=== PATIENT | female | born 1950 | race Two or more races ===

== ENCOUNTER 2024-07-18 05:44 | Day surgery (SDC) | payer OTHER ==
[2024-07-18] MEDS ORDERED: GLUCAGON 1 MG VIAL ONE (08:46)
[2024-07-18] MEDS ORDERED: NALOXONE HCL 0.4 MG/ML AMPUL IV STA (09:21)
[2024-07-18] MEDS ORDERED: FLUMAZENIL 0.5 MG/5 ML ML IV STA (09:21)
[2024-07-18] MEDS ORDERED: GLUCAGON 1 MG VIAL IV STA (09:21)
[2024-07-18] MEDS ORDERED: ONDANSETRON HCL 2 MG/ML VIAL IV ONE (09:30)
[2024-07-18] MEDS ORDERED: fentaNYL CITRATE 50 MCG/ML AMPUL IV PUSH ONE (09:30)
[2024-07-18] MEDS ORDERED: MIDAZOLAM HCL 2 MG/2 ML VIAL IV ONE (09:30)
[2024-07-18] MEDS ORDERED: DIPHENHYDRAMINE HCL 50 MG/ML VIAL 1ML IV ONE (09:30)
== END 2024-07-18 11:50 | disposition home or self-care (01) ==
LOC: AMB-ENDOS 05:44
PROVIDERS: ATTEND Colon & Rectal Surgery
DX: K63.5 Polyp of colon (principal); R19.4 Change in bowel habit

== ENCOUNTER 2024-09-17 05:26 | Day surgery (SDC) | payer OTHER ==
[2024-09-17] MEDS ORDERED: FLUMAZENIL 0.5 MG/5 ML ML IV STA (09:04)
[2024-09-17] MEDS ORDERED: NALOXONE HCL 0.4 MG/ML AMPUL IV STA (09:04)
[2024-09-17] MEDS ORDERED: DIPHENHYDRAMINE HCL 50 MG/ML VIAL 1ML IV ONE (09:15)
[2024-09-17] MEDS ORDERED: fentaNYL CITRATE 50 MCG/ML AMPUL IV PUSH ONE (09:15)
[2024-09-17] MEDS ORDERED: ONDANSETRON HCL 2 MG/ML VIAL IV ONE (09:15)
[2024-09-17] MEDS ORDERED: MIDAZOLAM HCL 2 MG/2 ML VIAL IV ONE (09:15)
== END 2024-09-17 10:20 | disposition home or self-care (01) ==
LOC: AMB-ENDOS 05:26
PROVIDERS: ATTEND Colon & Rectal Surgery
DX: D12.2 Benign neoplasm of ascending colon (principal); D12.0 Benign neoplasm of cecum; K57.30 Diverticulosis of large intestine without perforation or abscess without bleeding; K63.5 Polyp of colon

== ENCOUNTER 2025-01-21 07:00 | Day surgery (SDC) | payer OTHER ==
[2025-01-21] MEDS ORDERED: ONDANSETRON HCL 2 MG/ML VIAL IV ONE (10:15)
[2025-01-21] MEDS ORDERED: MIDAZOLAM HCL 2 MG/2 ML VIAL IV ONE (10:15)
[2025-01-21] MEDS ORDERED: fentaNYL CITRATE 50 MCG/ML AMPUL IV PUSH ONE (10:15)
[2025-01-21] MEDS ORDERED: DIPHENHYDRAMINE HCL 50 MG/ML VIAL 1ML IV ONE (10:15)
== END 2025-01-21 11:20 | disposition home or self-care (01) ==
LOC: AMB-ENDOS 07:00
PROVIDERS: ATTEND Colon & Rectal Surgery
DX: D12.3 Benign neoplasm of transverse colon (principal); D12.4 Benign neoplasm of descending colon; K63.5 Polyp of colon; K57.30 Diverticulosis of large intestine without perforation or abscess without bleeding; Z86.0100 Personal history of colon polyps, unspecified